=== PATIENT | male | born 1950 | race African-American/Black ===

== ENCOUNTER → 2018-01-09 | Outpatient (CLI) | payer OTHER, MEDICARE ==
--- NOTE | 2018-01-09 10:07 | RADIOLOGY REPORT (SQ) ---
EXAM DESCRIPTION: U/S RETROPERITON (RENAL/AORTA) COMPLETED DATE/TIME: 01/09/2018 9:44 am REASON FOR STUDY: MICROHEMATURIA R31.29 OTHER MICROSCOPIC HEMATURIA COMPARISON: None. TECHNIQUE: Dynamic and static grayscale images acquired of the kidneys and bladder and recorded on P ACS. Additional selected color Doppler and spectral images recorded. LIMITATIONS: None. FINDINGS: RIGHT KIDNEY: Status post nephrectomy. LEFT KIDNEY: Normal size. Normal echogenicity. No solid or suspicious masses. No hydronephrosis. No calcifications. BLADDER: No masses. OTHER FINDINGS: No other significant finding. IMPRESSION: Right nephrectomy. Left kidney and bladder normal. TECHNICAL DOCUMENTATION: JOB ID: [id number] [employer]- All Rights Reserved Reading location - IP/workstation name: [email or web address]
== END ==
LOC: RAD 08:52
PROVIDERS: ATTEND Urology
DX: R31.29 Other microscopic hematuria (principal); Z90.5 Acquired absence of kidney
CPT/HCPCS: 76770

== ENCOUNTER → 2019-05-16 | Outpatient (CLI) | payer OTHER, MEDICARE ==
--- NOTE | 2019-05-17 09:41 | RADIOLOGY REPORT (SQ) ---
EXAM DESCRIPTION: MRI LT UPPER JOINT WITHOUT COMPLETED DATE/TIME: 05/16/2019 6:36 pm REASON FOR STUDY: M25.512 PAIN IN LEFT SHOULDER M25.512 PAIN IN LEFT SHOULDER COMPARISON: None. TECHNIQUE: Left shoulder images acquired and stored on PACS. Multiplanar imaging to include fat sens itive sequences such as T1, water sensitive sequences such as FST2/STIR, cartilage sensitive sequence s such as FSPD/gradient-echo sequences. LIMITATIONS: None. FINDINGS: BONE MARROW AND CORTEX: No worrisome bone lesions or marrow replacement. No occult fractur es. JOINT OR BURSAL EFFUSION: Intra and extra-articular fluid. GLENO-HUMERAL ARTICULATION: Marked glenohumeral osteoarthritis. Mild superior migration of the humer al head. Marked cystic change of the glenoid with generalize cartilaginous loss. Cystic changes hum eral head. ACROMION AND AC JOINT: Type 2 acromion. Marked hypertrophic changes of the AC joint. ROTATOR CUFF AND INTERVAL: Massive rotator cuff tear. There is complete tear with retraction of the supraspinatus and the proximal 3/4 of the infraspinatus. Subscapularis is intact. No rotator interval tear. No rotator interval thickening to suggest adhesive capsulitis. LABRUM AND BICEPS LABRAL COMPLEX: Marked degenerative changes the labrum. Presumed tear of the int ra-articular biceps tendon. The distal tendon is not identified. REMAINDER OF LABRUM AND IGHL : Diffuse degenerative changes of the inferior labrum. PERIARTICULAR AND ADJACENT SOFT TISSUES: No masses or abnormal nodes. OTHER: No other significant finding. IMPRESSION: Massive rotator cuff tear with retraction. Involves the entire supraspinatus and the simpson perior 3/4 of the infraspinatus. Marked cuff muscle atrophy. Severe glenohumeral osteoarthritis. Superior migration of the humeral head which abuts the acromion. Presumed tear of the intra-articular biceps tendon. Intra and extra-articular fluid. TECHNICAL DOCUMENTATION: JOB ID: [id number] [employer]- All Rights Reserved Reading location - IP/workstation name: [email or web address]
== END ==
LOC: RAD 16:43
PROVIDERS: ATTEND Orthopaedic Surgery Sports Medicine
DX: M25.512 Pain in left shoulder (principal)

== ENCOUNTER → 2019-09-04 | Outpatient (CLI) | payer OTHER, MEDICARE ==
--- NOTE | 2019-09-04 15:26 | RADIOLOGY REPORT (SQ) ---
EXAM DESCRIPTION: UPPER GI/SM BOWEL COMPLETED DATE/TIME: 09/04/2019 2:39 pm REASON FOR STUDY: NAUSEA R11.0 NAUSEA anemia new COMPARISON: Small-bowel follow-through 03/24/2007. TECHNIQUE: Under fluoroscopic guidance, patient ingested effervescent granules followed by thick an d thin barium. Fluoroscopic spot images and routine radiographic images acquired and stored on PACS . Following evaluation of esophagus and stomach, additional barium administered with serial delayed ab dominal radiographs until colonic identification. Fluoroscopic images recorded of the terminal ileu m. 12 MM BARIUM TABLET GIVEN: Yes. No significant delay in passage. FLUOROSCOPY TIME: 6.3 minutes of fluoroscopy was used. 29 images saved to PACS. LIMITATIONS: None. FINDINGS: NEUROMUSCULAR COORDINATION OF SWALLOW: Normal. No aspiration. ESOPHAGEAL MOTILITY: Normal peristalsis. No esophageal spasm. ESOPHAGEAL MUCOSA: Normal mucosa without masses or ulceration. GASTRO-ESOPHAGEAL JUNCTION: Large hiatal hernia containing the entire fundus of the stomach. Free-fl owing gastroesophageal reflux seen. 12 mm barium tablet passed the GE junction without delay. STOMACH: Large hiatal hernia with the majority the stomach above the diaphragm. Focal collection of barium with surrounding edema along the lesser curvature of the stomach, could indicate ulcer. GASTRIC OUTLET: No delay in emptying. Normal pylorus. DUODENAL BULB: Normal distention. No spasm or ulceration. DUODENUM: Mucosa normal. No extrinsic masses or malrotation. PROXIMAL SMALL BOWEL: Normal as visualized. JEJUNUM: Normal mucosal pattern. No dilatation, segmentation, strictures or masses. ILEUM: Normal mucosal pattern. No dilatation, segmentation, strictures or masses. TERMINAL ILEUM AND ILEO-CECAL VALVE: Normal mucosal pattern without cobble-stoning or stricture. Nor mal compression. PROXIMAL COLON: Incompletely imaged. No abnormality. NON-GI TRACT STRUCTURES: No significant finding. OTHER: Transit time through the small bowel is normal with filling of the cecum seen on 2 hour delaye d imaging. IMPRESSION: 1. LARGE HIATAL HERNIA CONTAINING NEARLY THE ENTIRE FUNDUS OF THE STOMACH. FREE-FLOWIN G GASTROESOPHAGEAL REFLUX NOTED. 2. SMALL FOCAL COLLECTION OF CONTRAST WITH SURROUNDING EDEMA ALONG THE LESSER CURVATURE OF THE STOMA CH WHICH MAY INDICATE ULCER CRATER. 3. NORMAL SMALL BOWEL FOLLOW-THROUGH. COMMENT: Quality ID [id number]: Final reports for procedures using fluoroscopy that document radiation exp osure indices, or exposure time and number of fluorographic images (if radiation exposure indices are not available) TECHNICAL DOCUMENTATION: JOB ID: [id number] [employer]- All Rights Reserved Reading location - IP/workstation name: [email or web address]
== END ==
LOC: RAD 08:51
PROVIDERS: ATTEND Internal Medicine Gastroenterology
DX: K44.9 Diaphragmatic hernia without obstruction or gangrene (principal); K21.9 Gastro-esophageal reflux disease without esophagitis; R11.0 Nausea
CPT/HCPCS: 74249

== ENCOUNTER 2020-03-23 13:39 | Emergency (ER) | payer OTHER, MEDICARE ==
--- NOTE | 2020-03-23 14:46 | RADIOLOGY REPORT (SQ) ---
EXAM DESCRIPTION: CHEST SINGLE VIEW IMAGES COMPLETED DATE/TIME: 03/23/2020 2:35 pm REASON FOR STUDY: sob COMPARISON: None. EXAM PARAMETERS: NUMBER OF VIEWS: One view. TECHNIQUE: 2 frontal radiographic views of the chest acquired. RADIATION DOSE: NA LIMITATIONS: None. FINDINGS: LUNGS AND PLEURA: No consolidation, pneumothorax or pleural effusion. MEDIASTINUM AND HILAR STRUCTURES: No masses. Contour normal. HEART AND VASCULAR STRUCTURES: Heart normal in size. Normal vasculature. BONES: No acute findings. HARDWARE: Status post reverse total left shoulder arthroplasty. IMPRESSION: NO ACUTE RADIOGRAPHIC FINDING IN THE CHEST. TECHNICAL DOCUMENTATION: JOB ID: [id number] [employer] All Rights Reserved Reading location - IP/workstation name: [email or web address]
[2020-03-23 15:19] LABS: ABSOLUTE BASOPHILS # (AUTO) 0.1 10^3/uL (0.0-0.2); ABSOLUTE EOSINOPHILS # (AUTO) 1.1 10^3/uL (0.0-0.6); ABSOLUTE LYMPHOCYTES (AUTO) 1.4 10^3/uL (0.5-4.7); ABSOLUTE MONOCYTES (AUTO) 0.7 10^3/uL (0.1-1.4); ABSOLUTE NEUT (AUTO) 3.5 10^3/uL (1.7-8.2); BASOPHILS % (AUTO) 0.7 % (0-2); EOSINOPHILS % (AUTO) 16.8 % (0-6); HEMOGLOBIN 9.6 g/dL (13.5-17.0); LYMPHOCYTES % (AUTO) 21.1 % (13-45); MEAN CORPUSCULAR HEMOGLOBIN 33.1 pg (27.0-33.4); MEAN CORPUSCULAR HGB CONC 34.3 g/dL (32.0-36.0); MEAN CORPUSCULAR VOLUME 97 fl (80-97); MONOCYTES % (AUTO) 10.3 % (3-13); PLATELET COUNT 275 10^3/uL (150-450); RED CELL DISTRIBUTION WIDTH 15.5 % (11.5-14.0); SEGMENTED NEUTROPHILS % (AUTO) 51.1 % (42-78); TOTAL CELLS COUNTED % (AUTO) 100 %; WHITE BLOOD COUNT 6.8 10^3/uL (4.0-10.5)
[2020-03-23 15:27] LABS: ALBUMIN 2.3 g/dL (3.5-5.0); ALKALINE PHOSPHATASE 209 U/L (38-126); ANION GAP 7 (5-19); ASPARTATE AMINO TRANSFERASE 49 U/L (17-59); BILIRUBIN,DIRECT 0.4 mg/dL (0.0-0.4); BLOOD UREA NITROGEN 17 mg/dL (7-20); CALCIUM 8.1 mg/dL (8.4-10.2); CARBON DIOXIDE 24 mmol/L (22-30); CHLORIDE 97 mmol/L (98-107); GLUCOSE 107 mg/dL (75-110); POTASSIUM 4.6 mmol/L (3.6-5.0); TOTAL PROTEIN 5.1 g/dL (6.3-8.2)
[2020-03-23] MEDS ORDERED: NORMAL SALINE 1000 ML 1,000 ML IV ONE ×2 (16:32→17:39)
[2020-03-23] MEDS ORDERED: METHYLPREDNISOLONE INJ 125 MG/2 ML SDV IV ONE (17:37)
[2020-03-23 17:49] LABS: APPEARANCE,URINE CLEAR; BILIRUBIN,URINE NEGATIVE (NEGATIVE); COLOR,URINE YELLOW; GLUCOSE, URINE NEGATIVE (NEGATIVE); KETONES,URINE NEGATIVE (NEGATIVE); LEUKOCYTE ESTERASE,URINE NEGATIVE (NEGATIVE); NITRITE,URINE NEGATIVE (NEGATIVE); PROTEIN,URINE NEGATIVE (NEGATIVE); URINE SPECIFIC GRAVITY 1.005; UROBILINOGEN,URINE NEGATIVE mg/dL (<2.0)
[2020-03-23 18:07] VITALS: BP 130/97
--- NOTE | 2020-03-23 18:38 | EKG REPORT ---
SEVERITY:- ABNORMAL ECG - ACCELERATED JUNCTIONAL RHYTHM LOW VOLTAGE THROUGHOUT : Confirmed by: Chelsi Winchester 23-Mar-2020 18:38:33
[2020-03-23 18:40] LABS: TROPONIN I 0.018 ng/mL
[2020-03-23] MEDS ORDERED: PREDNISONE 20 MG TABLET PO ONE (20:06)
--- NOTE | 2020-03-26 10:39 | ER Document Report ---
Entered by WINDY THAKKAR SCRIBE 03/23/20 [id number] Acting as scribe for:YULIET MAGANA MD ED General - General Chief Complaint: Shortness Of Breath Stated Complaint: SHORTNESS OF BREATH/NAUSEA Time Seen by Provider: 03/23/20 16:13 Information source: Patient Notes: This 69 year old male patient presents to the emergency department today with multiple complaints. He reports he has been dizzy for 4 to 5 weeks. He saw his primary care provider 3 to 4 weeks ago and got IV fluids and it helped his symptoms. He also states his blood pressures been running low for "a little while now", and in addition to IV fluids he had some of his blood pressure medicine stopped. He had an oral and IV contrasted CT scan of the abdomen and pelvis on 03/18/2020 at the [facility]. This was done for decreased appetite and weight loss. He reports the contrast was given in the left arm, and about 1 hour later noticed the arm was swelling. About 2 days after this, he noticed the skin begin to peel on both of his arms. He has not been back to see his primary care provider about the ongoing dizziness, or the skin desquamation. He further states that his legs feel tight. He is also complaining of feeling short of breath. His past history is significant for GERD, hypertension, asthma, gout, anemia, arthritis, and had a robotic prostatectomy for prostate cancer in 2004, and a right nephrectomy for renal cell carcinoma in 2006. TRAVEL OUTSIDE OF THE [place] IN LAST 30 DAYS: No - Related Data Allergies/Adverse Reactions: naproxen Allergy (Verified 12/08/17 08:22) NSAIDS (Non-Steroidal Anti-Inflamma Allergy (Verified 12/08/17 17:15) Past Medical History - General Information source: Patient - Social History Smoking Status: Unknown if Ever Smoked Family History: Reviewed & Not Pertinent - Past Medical History Cardiac Medical History: Reports: Hx Hypertension Pulmonary Medical History: Reports: Hx Asthma, Hx Pneumonia Renal/ Medical History: Reports: Hx Benign Prostatic Hyperplasia GI Medical History: Reports: Hx Gastroesophageal Reflux Disease Musculoskeletal Medical History: Reports Hx Arthritis Past Surgical History: Reports: Hx Kidney (Renal Surgery) - Removed Review of Systems - Review of Systems Constitutional: No symptoms reported EENT: No symptoms reported Cardiovascular: See HPI, Dizziness Respiratory: See HPI, Short of breath Gastrointestinal: No symptoms reported Genitourinary: No symptoms reported Male Genitourinary: No symptoms reported Musculoskeletal: See HPI, Other - arms swelling legs feel tight Skin: See HPI, Dryness, Other - Itchy - arms Hematologic/Lymphatic: No symptoms reported Neurological/Psychological: No symptoms reported -: Yes All other systems reviewed and negative Physical Exam - Vital signs Vitals: Resp 12 03/23/20 14:10 - General General appearance: Appears well, Alert - HEENT Head: Normocephalic, Atraumatic Eyes: Normal Pupils: PERRL - Respiratory Respiratory status: No respiratory distress Chest status: Nontender Breath sounds: Normal Chest palpation: Normal - Cardiovascular Rhythm: Regular Heart sounds: Normal auscultation Murmur: No - Abdominal Inspection: Normal Distension: No distension Bowel sounds: Normal Tenderness: Nontender - Back Back: Normal - Extremities General upper extremity: Edema - There is a little bit of edema noted in the upper arms near the elbows and the proximal forearms., Normal ROM, Other - See skin for the skin exam. General lower extremity: Other - See skin for the skin exam.. No: Edema - Neurological Neuro grossly intact: Yes Cognition: Normal Orientation: AAOx4 Speech: Normal - Psychological Associated symptoms: Normal affect, Normal mood - Skin Skin Temperature: Warm Skin Moisture: Dry Notes: The lower extremity skin is dry, thickened, and has some scaling. The upper extremity skin is dry, scaling, and desquamating such that it is appearing to look like scalded skin on the upper arms. Course - Re-evaluation Re-evalutation: 03/23/20 19:23 18 spoke with 1 of the emergency room physicians and [facility] emergency room. Patient CT scan was done for decreased appetite and weight loss. There was no acute findings, he did have a large hiatal hernia and the known right nephrectomy. On 03/18/2020 his creatinine was 2.0 on 02/15/2020 his creatinine is 1.6, today it is 2.26 Lab work today shows that he does have an anemia with a hemoglobin of 9.6, and he does have an elevated sed rate at 50. His sodium today is 128.4, last week it was 129.0 - Vital Signs Vital signs: Temp Pulse Resp BP Pulse Ox 98.5 F 16 130/97 H 100 03/23/20 18:07 03/23/20 18:01 03/23/20 18:00 03/23/20 18:01 - Laboratory Result Diagrams: 03/23/20 14:45 03/23/20 14:45 Laboratory results interpreted by me: 03/23/20 03/23/20 03/23/20 14:45 14:45 14:45 RBC 2.90 L Hgb 9.6 L Hct 28.0 L RDW 15.5 H Eos % (Auto) 16.8 H Absolute Eos (auto) 1.1 H Sodium 128.4 L Chloride 97 L Creatinine 2.26 H Est GFR ( Amer) 35 L Est GFR (MDRD) Non-Af 29 L Calcium 8.1 L Alkaline Phosphatase 209 H C-Reactive Protein 50.0 H NT-Pro-B Natriuret Pep Total Protein 5.1 L Albumin 2.3 L 03/23/20 17:48 RBC Hgb Hct RDW Eos % (Auto) Absolute Eos (auto) Sodium Chloride Creatinine Est GFR ( Amer) Est GFR (MDRD) Non-Af Calcium Alkaline Phosphatase C-Reactive Protein NT-Pro-B Natriuret Pep 7160 H Total Protein Albumin - Diagnostic Test Radiology reviewed: Image reviewed, Reports reviewed - Chest x-ray does not show acute radiographic abnormality. - EKG Interpretation by Me EKG shows normal: [place], Intervals, QRS Complexes, ST-T Waves Rate: Normal - 74 Rhythm: Other - Accelerated junctional rhythm Voltage: Decreased voltage, Throughout Discharge - Discharge Clinical Impression: Dermatitis, Dizziness, Shortness of breath Hypotension Qualifiers: Hypotension type: unspecified hypotension type Qualified Code(s): I95.9 - Hypotension, unspecified Condition: Stable Disposition: HOME, SELF-CARE Additional Instructions: Follow-up with your doctor at the [facility] tomorrow for reevaluation of your blood pressure, kidney function, and skin rash. Take the copies of your lab work, chest x-ray, EKG, blood pressures, pulse oximetry readings, and medications provided from today with you when you go to see your doctor. RETURN TO THE EMERGENCY ROOM IF ANY NEW OR WORSENING SYMPTOMS. I personally performed the services described in the documentation, reviewed and edited the documentation which was dictated to the scribe in my presence, and it accurately records my words and actions.
== END 2020-03-23 22:06 | disposition home or self-care (01) ==
LOC: ER 13:39
DX: L30.9 Dermatitis, unspecified (principal); R42 Dizziness and giddiness; I95.9 Hypotension, unspecified; R06.02 Shortness of breath; R11.0 Nausea; K44.9 Diaphragmatic hernia without obstruction or gangrene; D64.9 Anemia, unspecified; I10 Essential (primary) hypertension; Z88.6 Allergy status to analgesic agent; Z90.5 Acquired absence of kidney
CPT/HCPCS: 93005; 99284; 96361; 96374; 36415; 82550; 85025; 86140; 80053; 81001; 84484; 83880; 71045; 93010; J2930; J7512; J7030